=== PATIENT | female | born 2000 | race Caucasian/White ===

== ENCOUNTER 2020-06-10 23:26 | Inpatient (IN) | payer MEDICAID, SELFPAY ==
[2020-06-10 23:06] VITALS: O2SAT 99
[2020-06-10 23:07] VITALS: BP 146/85; PULSE 58; TEMP 36.7
[2020-06-10 23:27] VITALS: BMI 39.2
[2020-06-11] VITALS (69 sets, daily range): BP systolic 118–148; BP diastolic 61–92; PULSE 51–127; RESP 16–18; TEMP 35.8–37; O2SAT 89–100
--- NOTE | 2020-06-11 00:15 | PCM.HP.OB ---
- Problem List (1) 39 weeks gestation of Status: Acute (2) Primiparous Status: Acute (3) Positive GBS test Status: Acute (4) Uterine contractions Status: Acute (5) Abnormal glucose tolerance test Status: Acute (6) Gonorrhea affecting Status: Acute (7) Chlamydia infection affecting Status: Acute History Date of Admission: 06/11/20 Final HOLLY: 06/17/20 Gestational age: 39 Weeks and 1 Days History of this : This is a 19 year-old, G1 at 39w1d who presents with painful uterine contractions in early labor. Allergies amoxicillin Allergy (Verified 06/10/20 23:32) Hives cephalexin [From Keflex] Allergy (Verified 06/10/20 23:32) Hives Penicillins Allergy (Verified 06/10/20 23:32) Hives Home Medications: Home Medications Prenatabs FA 1 tab PO DAILY 06/10/20 Smoking Status: Never smoker Alcohol: None Number of Fetus(es): 1 NST - FHR Rate Baby A FHR Category:: Category I Uterine Activity:: regular ctx's History Past Pregnancies: Past Pregnancies Delivery Date Name GA/ Weeks Outcome Route Wt Infant Sex Labor Length Anesthesia Delivery Location Provider FOB Labs: See [facility] record Expected Infant Delivery Method: Spontaneous Vaginal Physical Exam Vitals: Vital Signs Temp Pulse BP Pulse Ox 98.1 F 58 L 146/85 H 99 06/10/20 23:07 06/10/20 23:07 06/10/20 23:07 06/10/20 23:06 Assessment/Plan All Active Problems 39 weeks gestation of (Acute) Primiparous (Acute) Positive GBS test (Acute) Uterine contractions (Acute) Abnormal glucose tolerance test (Acute) Gonorrhea affecting (Acute) Chlamydia infection affecting (Acute) This is a 19 year-old G1 at 39 wk gestation who presents in early labor. - Routine intrapartum care - Epidural PRN pain control - Vanc for GBS positive - Failed 1 hr GTT, never completed 3 hr GTT. Growth US in third trimester with AGA fetus and normal fluid - Pelvis adequate and EFW expected to be < 4500 g - Anticipate
[2020-06-11] MEDS: Lactated Ringers 500 ML 999 ML IV ×2 (00:19→04:10)
[2020-06-11 00:27] LABS: Absolute Lymphocyte Count 1.41 X10^3/uL (0.83-4.51); Absolute Neutrophil Count 10.7 X10^3/uL (2.0-7.7); Basophil# 0.06 X10^3/uL; Basophil% 0.5 % (0-1); Eosinophil# 0.01 X10^3/uL; Eosinophils% 0.1 % (0-5); Hematocrit 36.4 % (37-47); Lymphocyte # 1.41 X10^3/ul (4.0); Lymphocyte % 10.8 % (19-41); Mean Corpuscular Volume 84.8 fL (81-99); Mean Platelet Vol. 9.5 fl (6.2-12.0); Monocyte# 0.68 X10^3/uL; Monocyte% 5.2 % (0-10); NRBC Flagged by Analyzer 0 % (0-5); Neutrophil # 10.69 X10^3/uL (2.7-7.7); Neutrophil % 82.1 % (47-70); Platelet Count 268 K/mm3 (150-450); RBC Distribution Width CV 13.7 % (11.6-14.6); RBC Distribution Width SD 42.3 fl (35.1-43.9); Red Blood Count 4.29 M/mm3 (4.2-5.4)
[2020-06-11 00:46] LABS: International Normalized Ratio 0.9; Prothrombin Time (Protime)PT. 11.8 SECONDS (11.7-14.9)
[2020-06-11 00:47] LABS: Partial Thromboplast Time 22.4 Seconds (24.1-36.2)
[2020-06-11 00:52] LABS: AST(SGOT) 24 U/L (15-37); Alanine Aminotransfer ALT/SGPT 21 U/L (13-56); EST Glomerular Filtration Rate 111 mL/min (>60); Est Glom Filt Rate - Afr Amer 135 mL/min (>60); Estimated Creatinine Clearance 100.55 ml/min; Uric Acid 5.7 mg/dL (2.6-6.0)
[2020-06-11] MEDS: Lactated Ringers 1,000 ML 200 ML IV (01:20)
[2020-06-11 01:32] LABS: Protein, Urine (Random) 28.4 mg/dL (<11.9); Protein:Creat Ratio 273 mg/g CRE (0-200)
[2020-06-11] MEDS: fentaNYL-bupivacaine (epidural) 100 ML BAG EPIDURAL (01:52)
--- NOTE | 2020-06-11 02:44 | PCM.PN.BLA ---
Progress Note Comfortable with epidural. Cvx , head well applied. AROM performed for moderate amount of clear fluid. Anticipate . STROKE Vital Signs/Narrative: Vital Signs Temp Pulse BP Pulse Ox 06/11/20 02:37 116 H 100 06/11/20 02:36 114 H 148/72 H 06/11/20 02:32 109 H 100 06/11/20 02:31 96.4 F L 112 H 137/92 H 06/11/20 02:27 115 H 100 06/11/20 02:25 51 L 131/72 H 06/11/20 02:22 100 100 06/11/20 02:20 95 123/65 H 06/11/20 02:17 95 100 06/11/20 02:15 88 129/71 H 06/11/20 02:12 93 100 06/11/20 02:10 94 133/79 H 06/11/20 02:07 102 H 100 06/11/20 02:06 104 H 133/61 H 06/11/20 02:03 127 H 133/88 H 06/11/20 02:02 113 H 100 06/11/20 02:00 101 H 89 06/11/20 01:57 102 H 100 06/11/20 01:55 102 H 121/69 H 06/11/20 01:52 94 100 06/11/20 01:51 109 H 124/81 H 06/11/20 01:47 109 H 99 06/11/20 01:45 115 H 133/81 H 06/11/20 01:42 109 H 99 06/11/20 01:40 110 H 135/82 H 06/11/20 01:37 106 H 100 06/11/20 01:35 109 H 133/82 H 06/11/20 01:32 116 H 99 06/11/20 01:30 105 H 130/74 H 06/11/20 01:27 112 H 99 06/11/20 01:26 100 135/76 H 06/11/20 01:22 100 99 06/11/20 01:20 114 H 138/76 H 06/11/20 01:17 107 H 99 06/11/20 01:12 109 H 100 06/11/20 01:07 106 H 99 06/11/20 01:02 112 H 99 06/11/20 00:57 121 H 99 06/11/20 00:52 110 H 99 06/11/20 00:30 95 144/82 H 06/11/20 00:29 97.2 F L 06/10/20 23:07 98.1 F 58 L 146/85 H 06/10/20 23:06 99
--- NOTE | 2020-06-11 02:47 | PCM.PN.BLA ---
Progress Note BP's normal to mild range. Pt has no pre-e symptoms. Pre-e labs reviewed and WNL. Discussed symptoms of pre-e with pt. STROKE Vital Signs/Narrative: Vital Signs Temp Pulse BP Pulse Ox 06/11/20 02:42 106 H 100 06/11/20 02:37 116 H 100 06/11/20 02:36 114 H 148/72 H 06/11/20 02:32 109 H 100 06/11/20 02:31 96.4 F L 112 H 137/92 H 06/11/20 02:27 115 H 100 06/11/20 02:25 51 L 131/72 H 06/11/20 02:22 100 100 06/11/20 02:20 95 123/65 H 06/11/20 02:17 95 100 06/11/20 02:15 88 129/71 H 06/11/20 02:12 93 100 06/11/20 02:10 94 133/79 H 06/11/20 02:07 102 H 100 06/11/20 02:06 104 H 133/61 H 06/11/20 02:03 127 H 133/88 H 06/11/20 02:02 113 H 100 06/11/20 02:00 101 H 89 06/11/20 01:57 102 H 100 06/11/20 01:55 102 H 121/69 H 06/11/20 01:52 94 100 06/11/20 01:51 109 H 124/81 H 06/11/20 01:47 109 H 99 06/11/20 01:45 115 H 133/81 H 06/11/20 01:42 109 H 99 06/11/20 01:40 110 H 135/82 H 06/11/20 01:37 106 H 100 06/11/20 01:35 109 H 133/82 H 06/11/20 01:32 116 H 99 06/11/20 01:30 105 H 130/74 H 06/11/20 01:27 112 H 99 06/11/20 01:26 100 135/76 H 06/11/20 01:22 100 99 06/11/20 01:20 114 H 138/76 H 06/11/20 01:17 107 H 99 06/11/20 01:12 109 H 100 06/11/20 01:07 106 H 99 06/11/20 01:02 112 H 99 06/11/20 00:57 121 H 99 06/11/20 00:52 110 H 99 06/11/20 00:30 95 144/82 H 06/11/20 00:29 97.2 F L 06/10/20 23:07 98.1 F 58 L 146/85 H 06/10/20 23:06 99
[2020-06-11] MEDS: Oxytocin 30 units/NS 500 ml 30 UNITS/500 ML IV.SOLN 334 UNITS IV (04:56)
[2020-06-11 05:06] LABS: Bedside Glucose 136 mg/dL (70-110)
--- NOTE | 2020-06-11 05:18 | PCM.OPRPT ---
Problem List (1) 39 weeks gestation of Status: Acute (2) Primiparous Status: Acute (3) Positive GBS test Status: Acute (4) Uterine contractions Status: Acute (5) Abnormal glucose tolerance test Status: Acute (6) Gonorrhea affecting Status: Acute (7) Chlamydia infection affecting Status: Acute Report of Operation Date of Procedure: 06/11/20 Pre-Operative Diagnosis: 39 week gestation, active labor, primiparous Post-Operative Diagnosis: As above, Surgery/Procedure Performed:: Description of Surgical Findings:: Viable male in occiput anterior position. Normal-appearing and intact placenta with a three-vessel cord. Second-degree perineal laceration noted. Type of Anesthesia:: Epidural Special Medications: None Specimen's removed: Placenta Drains: Donovan Estimated Blood Loss (mL): 100 Description of Procedure: The patient was complete and pushing. Head delivered in occiput anterior position, followed by the anterior shoulder without any traction or delay. The posterior shoulder was then delivered followed by the body of the infant without any force or delay. Viable male infant was delivered atraumatically placed on maternal abdomen. The cord was clamped and cut after a 60 sec delay by the father of baby. Cord blood was obtained. With fundal massage the placenta was delivered. Placenta was noted to be normal and intact with a three-vessel cord. Uterus explored x1. 3-0 Vicryl was used to repair a second-degree perineal laceration. Bleeding was hemostatic. Fundus was firm. Sponge and needle counts were correct. Vaginal sweep was performed. Grafts/Implants Used: None - Complications None - Admit VTE Documentation VTE Present on Admission: No Vaginal Delivery Maternal Presentation: Active Labor Amniotic Membrane Rupture Type: Artificial Amniotic Fluid Description: Clear Surgery/ Procedure Performed: Spontaneous Vaginal Delivery Type of Anesthesia: Epidural Presentation: Vertex Placental Delivery Description: Expressed Cord Entanglement: None Infant A gender: Male (1 minute): 8 (5 minute): 9 Episiotomy Description: None Laceration: 2nd degree Medications given after delivery: IV Pitocin Complications: None
[2020-06-11 05:56] LABS: Bedside Glucose 123 mg/dL (70-110)
--- NOTE | 2020-06-11 06:11 | PCM.RX.CS ---
Consult Pharmacy has been consulted to manage selected antiobiotic: Vancomycin Type of Consult: New start Labs: Creatinine 0.70 mg/dL (0.55-1.02) 06/11/20 00:12 Est GFR (MDRD) Af Amer 135 mL/min (>60) 06/11/20 00:12 Est GFR (MDRD) Non-Af 111 mL/min (>60) 06/11/20 00:12 Microbiology: Microbiology 06/11/20 00:12 Mucosa - Nose SARS-CoV-2 Antigen (Rapid) - Final Pharmacy Plan for Drug Dosing: Pharmacy Service will continue to monitor and adjust dosing as required. Medications Vancomycin HCl 2,000 mg/ (Sodium Chloride) 540 mls @ 250 mls/hr IV Q8H ELADIO Last Admin: 06/11/20 02:33 Dose: Infused Documented by: Follow-Up Labs: Trough Vancomycin Labs to be done on [date and time ordered]: 06/11 @ 5409
[2020-06-11] MEDS: 0.9% Saline Lock 10 ML Syringe IV (07:57)
[2020-06-11] MEDS: Acetaminophen 500 MG Tablet 1000 MG PO (11:02)
[2020-06-11] MEDS: Ibuprofen 600 MG Tablet PO (18:14)
[2020-06-12 00:10] VITALS: BP 119/65; PULSE 75; RESP 18; TEMP 36.5
[2020-06-12 04:19] VITALS: BP 125/68; PULSE 87; RESP 16; TEMP 36.6
[2020-06-12 05:51] LABS: Bedside Glucose 71 mg/dL (70-110)
[2020-06-12 08:06] VITALS: BP 119/68; PULSE 102; RESP 16; TEMP 36.7
[2020-06-12] MEDS: Acetaminophen 500 MG Tablet 1000 MG PO (08:17)
--- NOTE | 2020-06-12 11:29 | PCM.PN.OB ---
Patient Problems: Active and Suspected Problems 39 weeks gestation of (Acute) Primiparous (Acute) Positive GBS test (Acute) Uterine contractions (Acute) Abnormal glucose tolerance test (Acute) Gonorrhea affecting (Acute) Chlamydia infection affecting (Acute) Subjective: Is doing well. Tolerating regular diet without nausea or vomiting. Ambulating voiding without difficulty. Lochia normal. She is bottlefeeding. Pain is well controlled. She denies lightheadedness, dizziness, chest pain, shortness of breath, leg pain. She desires to go home today if baby can go home. - Physical Exam Vitals/I&O's: Vital Signs Temp Pulse Resp BP Pulse Ox 98.1 F 102 H 16 119/68 98 06/12/20 08:06 06/12/20 08:06 06/12/20 08:06 06/12/20 08:06 06/11/20 06:57 Oxygen Delivery Method Room Air Weight: 214 lb 3.2 oz Body Mass Index (BMI) 39.2 Intake and Output for Last 24 Hours 06/10/20 06/11/20 06/13/20 23:59 23:59 00:59 Intake Total 2643.34 / 2643.34 Output Total 2300 / 2300 Balance 343.34 / 343.34 General: Alert, No apparent distress HEENT: Atraumatic Abdomen: Non-Distended Extremities: No edema Skin: No rashes Neurological: Neuro grossly intact Psych/Mental Status: Normal Affect, Appropriate Microbiology Past 72 Hours 06/11/20 00:12 Mucosa - Nose SARS-CoV-2 Antigen (Rapid) - Final Laboratory Results 06/12/20 05:45: POC Glucose 71 Current Medications Acetaminophen (Acetaminophen 500 Mg Tablet) 1,000 mg PO Q8H PRN PRN PRN Reason: Pain Score 1-3 Last Admin: 06/12/20 08:17 Dose: 1,000 mg Documented by: Bisacodyl (Bisacodyl 10 Mg Suppository) 10 mg RC UD PRN PRN Reason: If no BM Dibucaine (Dibucaine 30 Gm Tube) 1 applic TOPICAL TID PRN PRN; Protocol PRN Reason: Discomfort Hydrocortisone (Hydrocortisone 2.5% Crm) 1 applic TOPICAL TID PRN PRN; Protocol PRN Reason: Discomfort Ibuprofen (Ibuprofen 600 Mg Tablet) 600 mg PO Q6H PRN PRN PRN Reason: Pain Score 1-3 Last Admin: 06/11/20 18:14 Dose: 600 mg Documented by: Medroxyprogesterone Acetate (Medroxyprogesterone 150 Mg/Ml Syringe) 150 mg IM .[id number] ELADIO Methylergonovine Maleate (Methylergonovine 0.2 Mg/Ml Ampul) 0.2 mg IM X1 PRN PRN Reason: Excess bleeding/uterine atony Ondansetron HCl (Ondansetron 4 Mg/2 Ml Vial) 4 mg IV Q4H PRN PRN PRN Reason: Nausea Senna/Docusate Sodium (Senna/Docusate Sodium 1 Tablet) 1 - 2 tablet PO DAILY PRN PRN PRN Reason: Constipation Simethicone (Simethicone 80 Mg Tablet) 80 mg PO PCHS PRN PRN Reason: Indigestion/Stomach pain Sodium Chloride (0.9% Saline Lock 10 Ml Syringe) 5 - 15 ml IV UD PRN PRN Reason: SALINE FLUSH Last Admin: 06/11/20 07:57 Dose: 10 ml Documented by: Medical Necessity - Tobacco Use Smoking Status: Never smoker Assessment/Plan All Active Problems 39 weeks gestation of (Acute) Primiparous (Acute) Positive GBS test (Acute) Uterine contractions (Acute) Abnormal glucose tolerance test (Acute) Gonorrhea affecting (Acute) Chlamydia infection affecting (Acute) Patient is day 1 from a vaginal delivery. She is meeting all milestones to go home. Desires discharge if baby is cleared to go home. Discharge instructions reviewed.
--- NOTE | 2020-06-12 11:31 | DCINST_ITS ---
Discharge Diet: No Restrictions Discharge Activity: May Shower May resume sexual activity in: 6 weeks Ice area for (Minutes): 15 Weight Bearing Status: Weight bearing as tolerated Call your doctor if you observe: Fever of 101 or Higher, Change in Color, Inability to urinate, Inability to have a bowel movement, Using more than one pad per hour, Shortness of breath, Dizziness, Fainting spells, Swelling in the ankles, Chest pain, Increased palpitations (irregular heartbeat), Calf discomfort, Uncontrolled pain Cleanse incision/area with: Soap & Water Additional Instructions: If you experience any of the following, contact your healthcare provider. * Bleeding that soaks a pad every hour for 2 hours * Fever 100.4 or higher * Unrelieved incision or abdominal pain * Swelling, redness, discharge or bleeding from your incision or episiotomy site * Your incision begins to separate * Problems urinating (including inability to urinate or burning while urinating). * Visual changes * Severe headache * Flu-like symptoms * Pain or redness in one of both of your breasts * Pain, warmth, tenderness or swelling in your legs, especially the calf area * Frequent nausea and vomiting * Symptoms of depression or anxiety If you experience any of the following, call 911 or go to the nearest Emergency Room. * Chest pain * Problems breathing * Seizure activity * Partial or complete paralysis of a body part, slurred speech, weakness or drooping of the face, or a sudden inability to walk or hold your balance Allergies/Adverse Reactions: Allergies amoxicillin Allergy (Verified 06/10/20 23:32) Hives cephalexin [From Keflex] Allergy (Verified 06/10/20 23:32) Hives Penicillins Allergy (Verified 06/10/20 23:32) Hives Medications to take at Discharge Prenatabs FA 1 tab PO DAILY 06/10/20 When: 1-2 weeks if you desire. 6 weeks for visit. Primary Care Physician: Care Physician,No Primary [Primary Care Provider] - Test Results: Test results from this visit will be discussed in further detail at your follow- up appointment, if applicable.
[2020-06-12 13:46] VITALS: BP 119/70; PULSE 108; RESP 16; TEMP 36.1
[2020-06-12] MEDS: MedroxyPROGESTERone 150 MG/ML Syringe IM (16:35)
[2020-06-12 18:49] VITALS: BP 131/83; PULSE 101; RESP 18; TEMP 36.3
== END 2020-06-12 18:59 | disposition home or self-care (01) | DRG 560 ==
LOC: WPOUT 23:27 → WP 06-11 04:57
PROVIDERS: Admitting Provider Obstetrics & Gynecology; Visit Provider Obstetrics & Gynecology
DX: O99.824 Streptococcus B carrier state complicating childbirth (principal); Z37.0 Single live birth; Z3A.39 39 weeks gestation of pregnancy; O70.1 Second degree perineal laceration during delivery
CPT/HCPCS: 59025; 59050; 82565; 82570; 82962; 84156; 84450; 84460; 84550; 85025; 85027; 85610; 85730; 86850; 86900; 86901; 87426; 99218; J7040; J7120; A4216; G0378; J3490